=== PATIENT | male | born 1945 | race Caucasian/White ===

== ENCOUNTER 2022-09-01 08:22 | Emergency (ER) | payer OTHER, MEDICARE ==
[~2022-09-01] VITALS: Ht 177.8 cm; Wt 80.7 kg
[2022-09-01] MEDS ORDERED: ATENOLOL25 MG PO (08:51)
[2022-09-01] MEDS ORDERED: FINA5 PO (08:51)
[2022-09-01] MEDS ORDERED: AMLODIPINE BESYL5 MG PO (08:51)
[2022-09-01] MEDS ORDERED: PLAVIX75 MG PO (08:51)
== END 2022-09-01 10:06 | disposition home or self-care (01) ==
LOC: ER 08:22
DX: S50.312A Abrasion of left elbow, initial encounter (principal); W00.0XXA Fall on same level due to ice and snow, initial encounter; Z79.899 Other long term (current) drug therapy; Z79.02 Long term (current) use of antithrombotics/antiplatelets
CPT/HCPCS: 90471; 90714; 99282-25

== ENCOUNTER → 2023-07-06 | Outpatient (CLI) | payer MEDICARE, OTHER ==
[~2023-07-06] MED LIST: AMLODIPINE BESYL5 MG PO; ATENOLOL25 MG PO; FINA5 PO; PLAVIX75 MG PO
[2023-07-06 20:15] LABS: Microalbumin, Urine Quant. 68.9 mg/L (0.000-20.000); Protein, Urine Quantitative 12.5 mg/dL (0.0-11.9)
== END ==
LOC: LAB 07:30 → LAB SHORT 07:30
PROVIDERS: Internal Medicine Nephrology
DX: N18.30 Chronic kidney disease, stage 3 unspecified (principal); N25.81 Secondary hyperparathyroidism of renal origin; E55.9 Vitamin D deficiency, unspecified; E78.00 Pure hypercholesterolemia, unspecified; R76.9 Abnormal immunological finding in serum, unspecified; R94.5 Abnormal results of liver function studies; R94.6 Abnormal results of thyroid function studies; D51.8 Other vitamin B12 deficiency anemias; D52.8 Other folate deficiency anemias; D50.9 Iron deficiency anemia, unspecified
CPT/HCPCS: 82043; 82570; 84156

== ENCOUNTER → 2025-03-22 | Outpatient (CLI) | payer MEDICARE, OTHER ==
[~2025-03-22] MED LIST changes: +BACITRACIN ZIN1 EAC1 TOP
[2025-03-23 12:33] LABS: Stool Occult Bld Immuno 1 Negative (NEGATIVE)
== END ==
LOC: LAB SHORT 14:01 → LAB 14:01
PROVIDERS: Family Medicine
DX: D64.9 Anemia, unspecified (principal)
CPT/HCPCS: G0328